=== PATIENT | male | born 1945 | race Caucasian/White ===

== ENCOUNTER 2020-11-14 18:32 | Inpatient (IN) ==
[2020-11-15] MEDS ORDERED: Dextrose Gel 15 GM/37.5 ML TUBE PO PRN ×2 (10:19)
[2020-11-15] MEDS ORDERED: D5% in Water 1,000 ML IVC PRN (10:19)
[2020-11-15] MEDS ORDERED: *HR* Dextrose 50 % in Water (Vial) 50 ML VIAL IVP PRN (10:19)
[2020-11-15] MEDS: Insulin LISPRO 300 UNITS/3 ML VIAL SUBQ SCH ×5 (12:19→20:41)
[2020-11-15] MEDS: *HR* HYDROcodone/Acet 5/325 mg TABLET PO PRN (16:58)
[2020-11-15] MEDS: QUEtiapine Fumarate 25 MG TABLET PO SCH (20:39)
[2020-11-15] MEDS: (Omega-3/Dha/Epa/Fish Oil [Fish Oil 1,000 Mg Softgel]) PO SCH (21:08)
[2020-11-16 07:26] LABS: Basophils # 0.1 K/mcL (0.0-0.2); Basophils % 0.9 %; Eosinophils # 0.4 K/mcL (0.0-0.6); Eosinophils % 4.4 %; Hematocrit 30.9 % (37.5-50.1); Hemoglobin 9.6 g/dL (12.9-16.9); Immature Granulocytes % 0.4 % (0-4); Lymphocytes # 2.8 K/mcL (0.6-4.6); Lymphocytes % 34.6 %; Mean Corpuscular HGB Conc 31.1 g/dL (31.6-35.5); Mean Corpuscular Hemoglobin 29.8 pg (28.0-33.3); Mean Platelet Volume 10.6 fL (9.4-12.4); Monocytes # 0.6 K/mcL (0.0-1.3); Monocytes % 7.5 %; Neutrophils # 4.2 K/mcL (1.6-8.9); Platelet Count 347 K/mcL (140-400); Red Blood Count 3.22 M/mcL (4.19-5.50); Red Cell Distribution Width 14.6 % (11.5-14.5); Segmented Neutrophils % 52.2 %
[2020-11-16 07:37] LABS: Calcium 8.7 mg/dL (8.6-10.3); Potassium 4.4 mEq/L (3.5-5.1)
[2020-11-16] MEDS: Multivit/Ca/Min/Fe/FA 1 TAB TABLET PO SCH (08:45)
[2020-11-16] MEDS: Finasteride 5 MG TABLET PO SCH (08:45)
[2020-11-16] MEDS: *HR* Rivaroxaban 10 MG TABLET PO SCH (08:45)
[2020-11-16] MEDS: Pyridoxine (B-6) 50 MG TABLET PO SCH (08:45)
[2020-11-16] MEDS: (Ezetimibe [Zetia] 10 MG Tablet) PO SCH (08:46)
[2020-11-16] MEDS: (Omega-3/Dha/Epa/Fish Oil [Fish Oil 1,000 Mg Softgel]) PO SCH ×2 (08:46→21:37)
[2020-11-16] MEDS: Insulin LISPRO 300 UNITS/3 ML VIAL SUBQ SCH ×4 (08:46→21:36)
[2020-11-16] MEDS: (Doxepin Hcl 10 MG Capsule) PO SCH (08:46)
[2020-11-16] MEDS: Ascorbic Acid 500 MG TABLET PO SCH (08:47)
[2020-11-16] MEDS: *HR* HYDROcodone/Acet 5/325 mg TABLET PO PRN ×3 (08:52→23:08)
[2020-11-16] MEDS: QUEtiapine Fumarate 25 MG TABLET PO SCH (21:39)
[2020-11-17] MEDS: Finasteride 5 MG TABLET PO SCH (08:50)
[2020-11-17] MEDS: *HR* Rivaroxaban 10 MG TABLET PO SCH (08:51)
[2020-11-17] MEDS: Multivit/Ca/Min/Fe/FA 1 TAB TABLET PO SCH (08:51)
[2020-11-17] MEDS: Pyridoxine (B-6) 50 MG TABLET PO SCH (08:51)
[2020-11-17] MEDS: Ascorbic Acid 500 MG TABLET PO SCH (08:51)
[2020-11-17] MEDS: Insulin LISPRO 300 UNITS/3 ML VIAL SUBQ SCH ×4 (08:52→20:45)
[2020-11-17] MEDS: (Ezetimibe [Zetia] 10 MG Tablet) PO SCH (08:57)
[2020-11-17] MEDS: (Doxepin Hcl 10 MG Capsule) PO SCH (08:57)
[2020-11-17] MEDS: (Omega-3/Dha/Epa/Fish Oil [Fish Oil 1,000 Mg Softgel]) PO SCH ×2 (08:57→21:33)
[2020-11-17] MEDS: *HR* HYDROcodone/Acet 5/325 mg TABLET PO PRN ×2 (08:58→18:20)
[2020-11-17] MEDS: QUEtiapine Fumarate 25 MG TABLET PO SCH (20:44)
[2020-11-18] MEDS: *HR* HYDROcodone/Acet 5/325 mg TABLET PO PRN ×3 (06:44→20:09)
[2020-11-18] MEDS: *HR* Rivaroxaban 10 MG TABLET PO SCH (08:21)
[2020-11-18] MEDS: Pyridoxine (B-6) 50 MG TABLET PO SCH (08:24)
[2020-11-18] MEDS: Ascorbic Acid 500 MG TABLET PO SCH (08:24)
[2020-11-18] MEDS: Multivit/Ca/Min/Fe/FA 1 TAB TABLET PO SCH (08:24)
[2020-11-18] MEDS: Finasteride 5 MG TABLET PO SCH (08:24)
[2020-11-18] MEDS: (Doxepin Hcl 10 MG Capsule) PO SCH (08:25)
[2020-11-18] MEDS: Insulin LISPRO 300 UNITS/3 ML VIAL SUBQ SCH ×4 (08:25→20:12)
[2020-11-18] MEDS: (Ezetimibe [Zetia] 10 MG Tablet) PO SCH (08:25)
[2020-11-18] MEDS: (Omega-3/Dha/Epa/Fish Oil [Fish Oil 1,000 Mg Softgel]) PO SCH ×2 (08:25→20:12)
[2020-11-18] MEDS: QUEtiapine Fumarate 25 MG TABLET PO SCH (20:09)
[2020-11-19] MEDS: *HR* HYDROcodone/Acet 5/325 mg TABLET PO PRN ×3 (06:38→20:03)
[2020-11-19] MEDS: Ascorbic Acid 500 MG TABLET PO SCH (09:07)
[2020-11-19] MEDS: *HR* Rivaroxaban 10 MG TABLET PO SCH (09:07)
[2020-11-19] MEDS: Multivit/Ca/Min/Fe/FA 1 TAB TABLET PO SCH (09:07)
[2020-11-19] MEDS: Finasteride 5 MG TABLET PO SCH (09:07)
[2020-11-19] MEDS: Pyridoxine (B-6) 50 MG TABLET PO SCH (09:08)
[2020-11-19] MEDS: Insulin LISPRO 300 UNITS/3 ML VIAL SUBQ SCH ×4 (09:09→21:35)
[2020-11-19] MEDS: tiZANidine 4 MG TABLET PO PRN ×2 (09:09→17:35)
[2020-11-19] MEDS: (Doxepin Hcl 10 MG Capsule) PO SCH (09:10)
[2020-11-19] MEDS: (Ezetimibe [Zetia] 10 MG Tablet) PO SCH (09:10)
[2020-11-19] MEDS: (Omega-3/Dha/Epa/Fish Oil [Fish Oil 1,000 Mg Softgel]) PO SCH ×2 (09:10→21:36)
[2020-11-19] MEDS: amLODIPine 5 MG TABLET PO SCH (12:07)
[2020-11-19] MEDS: QUEtiapine Fumarate 25 MG TABLET PO SCH (20:03)
[2020-11-20] MEDS: *HR* HYDROcodone/Acet 5/325 mg TABLET PO PRN ×4 (02:03→21:29)
[2020-11-20] MEDS: tiZANidine 4 MG TABLET PO PRN ×2 (04:32→18:09)
[2020-11-20] MEDS: Multivit/Ca/Min/Fe/FA 1 TAB TABLET PO SCH (08:01)
[2020-11-20] MEDS: *HR* Rivaroxaban 10 MG TABLET PO SCH (08:01)
[2020-11-20] MEDS: Finasteride 5 MG TABLET PO SCH (08:01)
[2020-11-20] MEDS: amLODIPine 5 MG TABLET PO SCH (08:01)
[2020-11-20] MEDS: Pyridoxine (B-6) 50 MG TABLET PO SCH (08:02)
[2020-11-20] MEDS: (Omega-3/Dha/Epa/Fish Oil [Fish Oil 1,000 Mg Softgel]) PO SCH ×2 (08:03→21:36)
[2020-11-20] MEDS: Ascorbic Acid 500 MG TABLET PO SCH (08:03)
[2020-11-20] MEDS: (Doxepin Hcl 10 MG Capsule) PO SCH (08:03)
[2020-11-20] MEDS: (Ezetimibe [Zetia] 10 MG Tablet) PO SCH (08:03)
[2020-11-20] MEDS: Insulin LISPRO 300 UNITS/3 ML VIAL SUBQ SCH ×4 (08:03→21:35)
[2020-11-20] MEDS: QUEtiapine Fumarate 25 MG TABLET PO SCH (21:30)
[2020-11-21] MEDS: tiZANidine 4 MG TABLET PO PRN ×2 (02:09→17:59)
[2020-11-21] MEDS: *HR* HYDROcodone/Acet 5/325 mg TABLET PO PRN ×2 (05:25→13:04)
[2020-11-21] MEDS: Insulin LISPRO 300 UNITS/3 ML VIAL SUBQ SCH ×4 (08:14→20:17)
[2020-11-21] MEDS: Multivit/Ca/Min/Fe/FA 1 TAB TABLET PO SCH (08:14)
[2020-11-21] MEDS: Finasteride 5 MG TABLET PO SCH (08:15)
[2020-11-21] MEDS: Ascorbic Acid 500 MG TABLET PO SCH (08:15)
[2020-11-21] MEDS: *HR* Rivaroxaban 10 MG TABLET PO SCH (08:15)
[2020-11-21] MEDS: (Omega-3/Dha/Epa/Fish Oil [Fish Oil 1,000 Mg Softgel]) PO SCH ×2 (08:16→20:20)
[2020-11-21] MEDS: (Ezetimibe [Zetia] 10 MG Tablet) PO SCH (08:16)
[2020-11-21] MEDS: (Doxepin Hcl 10 MG Capsule) PO SCH (08:16)
[2020-11-21] MEDS: Pyridoxine (B-6) 50 MG TABLET PO SCH (08:16)
[2020-11-21] MEDS: amLODIPine 5 MG TABLET PO SCH (08:16)
[2020-11-21] MEDS: *HR* HYDROcodone/Acet 7.5/325 mg TABLET PO PRN (20:16)
[2020-11-21] MEDS: QUEtiapine Fumarate 25 MG TABLET PO SCH (20:17)
[2020-11-21] MEDS: Insulin DETEMIR 100 UNIT/ML X5UNITS SUBQ SCH (20:18)
[2020-11-22] MEDS: *HR* HYDROcodone/Acet 7.5/325 mg TABLET PO PRN ×4 (02:48→21:02)
[2020-11-22] MEDS: tiZANidine 4 MG TABLET PO PRN ×2 (02:49→12:18)
[2020-11-22] MEDS: Ascorbic Acid 500 MG TABLET PO SCH (08:45)
[2020-11-22] MEDS: amLODIPine 5 MG TABLET PO SCH (08:45)
[2020-11-22] MEDS: *HR* Rivaroxaban 10 MG TABLET PO SCH (08:45)
[2020-11-22] MEDS: Finasteride 5 MG TABLET PO SCH (08:46)
[2020-11-22] MEDS: Multivit/Ca/Min/Fe/FA 1 TAB TABLET PO SCH (08:46)
[2020-11-22] MEDS: Pyridoxine (B-6) 50 MG TABLET PO SCH (08:46)
[2020-11-22] MEDS: Insulin LISPRO 300 UNITS/3 ML VIAL SUBQ SCH ×4 (08:47→21:03)
[2020-11-22] MEDS: (Omega-3/Dha/Epa/Fish Oil [Fish Oil 1,000 Mg Softgel]) PO SCH ×2 (09:08→21:04)
[2020-11-22] MEDS: (Doxepin Hcl 10 MG Capsule) PO SCH (09:08)
[2020-11-22] MEDS: (Ezetimibe [Zetia] 10 MG Tablet) PO SCH (09:08)
[2020-11-22] MEDS: QUEtiapine Fumarate 25 MG TABLET PO SCH (21:03)
[2020-11-22] MEDS: Insulin DETEMIR 100 UNIT/ML X5UNITS SUBQ SCH (21:19)
[2020-11-23] MEDS: tiZANidine 4 MG TABLET PO PRN (06:42)
[2020-11-23] MEDS: *HR* HYDROcodone/Acet 7.5/325 mg TABLET PO PRN (06:42)
[2020-11-23] MEDS: Insulin LISPRO 300 UNITS/3 ML VIAL SUBQ SCH ×2 (07:26→11:14)
[2020-11-23 07:57] VITALS: BP 98/62
[2020-11-23] MEDS: Ascorbic Acid 500 MG TABLET PO SCH (08:40)
[2020-11-23] MEDS: Pyridoxine (B-6) 50 MG TABLET PO SCH (08:40)
[2020-11-23] MEDS: *HR* Rivaroxaban 10 MG TABLET PO SCH (08:40)
[2020-11-23] MEDS: Finasteride 5 MG TABLET PO SCH (08:40)
[2020-11-23] MEDS: amLODIPine 5 MG TABLET PO SCH (08:41)
[2020-11-23] MEDS: Multivit/Ca/Min/Fe/FA 1 TAB TABLET PO SCH (08:41)
[2020-11-23] MEDS: (Omega-3/Dha/Epa/Fish Oil [Fish Oil 1,000 Mg Softgel]) PO SCH (08:42)
[2020-11-23] MEDS: (Doxepin Hcl 10 MG Capsule) PO SCH (08:42)
[2020-11-23] MEDS: (Ezetimibe [Zetia] 10 MG Tablet) PO SCH (08:42)
== END 2020-11-23 13:40 | disposition home health service (06) | DRG 946 ==
LOC: INPPIK 11-15 10:34
PROVIDERS: ADMIT Family Medicine; ATTEND Family Medicine

== ENCOUNTER 2021-01-11 06:48 | Inpatient (IN) ==
[2021-01-11] MEDS ORDERED: *HR* Dextrose 50 % in Water (Vial) 50 ML VIAL IVP PRN (08:20)
[2021-01-11] MEDS ORDERED: D5% in Water 1,000 ML IVC PRN (08:20)
[2021-01-11] MEDS ORDERED: Dextrose Gel 15 GM/37.5 ML TUBE PO PRN ×2 (08:20)
[2021-01-11 09:22] LABS: Basophils % 0.3 %; Eosinophils # 0.3 K/mcL (0.0-0.6); Eosinophils % 2.2 %; Hematocrit 27.3 % (37.5-50.1); Hemoglobin 8.6 g/dL (12.9-16.9); Immature Granulocytes % 1.2 % (0-4); Lymphocytes # 2.5 K/mcL (0.6-4.6); Lymphocytes % 19.6 %; Mean Corpuscular HGB Conc 31.5 g/dL (31.6-35.5); Mean Corpuscular Hemoglobin 29.3 pg (28.0-33.3); Mean Corpuscular Volume 92.9 fL (83.0-100.0); Mean Platelet Volume 10.2 fL (9.4-12.4); Monocytes # 0.8 K/mcL (0.0-1.3); Monocytes % 6.3 %; Platelet Count 343 K/mcL (140-400); Red Blood Count 2.94 M/mcL (4.19-5.50); Red Cell Distribution Width 16.1 % (11.5-14.5); Segmented Neutrophils % 70.4 %; White Blood Count 12.8 K/mcL (4.3-11.1)
[2021-01-11 09:56] LABS: Albumin 2.7 g/dL (3.5-5.7); Albumin/Globulin Ratio 0.9 (1.1-2.2); Bilirubin,Total 0.3 mg/dL (0.3-1.0); Calcium 7.8 mg/dL (8.6-10.3); Globulin 3.1 g/dL (2.4-3.5); Magnesium 1.3 mg/dL (1.6-2.6); Phosphorous 3.9 mg/dL (2.7-4.5); Potassium 4.6 mEq/L (3.5-5.1); Total Protein 5.8 g/dL (6.4-8.9)
[2021-01-11] MEDS: Insulin LISPRO 300 UNITS/3 ML VIAL SUBQ SCH ×4 (11:08→20:52)
[2021-01-11] MEDS: *HR* OxyCODONE Immed Rel 5 MG TABLET PO PRN ×2 (11:12→20:55)
[2021-01-11] MEDS: Pyridoxine (B-6) 50 MG TABLET PO SCH (11:12)
[2021-01-11] MEDS: (Ezetimibe [Zetia] 10 MG Tablet) PO SCH (11:13)
[2021-01-11] MEDS: Finasteride 5 MG TABLET PO SCH (11:13)
[2021-01-11] MEDS: (Omega-3/Dha/Epa/Fish Oil [Fish Oil 1,000 Mg Softgel]) PO SCH (11:13)
[2021-01-11] MEDS: Multivit/Ca/Min/Fe/FA 1 TAB TABLET PO SCH (11:13)
[2021-01-11] MEDS: Micafungin 100 MG in 0.9 % Sodium Chloride Mini Bag 100 ML IVPB SCH (12:45)
[2021-01-11] MEDS: *HR* Rivaroxaban 10 MG TABLET PO SCH (17:38)
[2021-01-11] MEDS: tiZANidine 4 MG TABLET PO PRN (17:48)
[2021-01-12 08:26] LABS: Basophils # 0.1 K/mcL (0.0-0.2); Basophils % 0.4 %; Eosinophils # 0.3 K/mcL (0.0-0.6); Eosinophils % 2.2 %; Hematocrit 25.5 % (37.5-50.1); Hemoglobin 8.2 g/dL (12.9-16.9); Immature Granulocytes % 1.1 % (0-4); Lymphocytes # 2.9 K/mcL (0.6-4.6); Lymphocytes % 24.1 %; Mean Corpuscular HGB Conc 32.2 g/dL (31.6-35.5); Mean Corpuscular Hemoglobin 29.4 pg (28.0-33.3); Mean Corpuscular Volume 91.4 fL (83.0-100.0); Mean Platelet Volume 10.6 fL (9.4-12.4); Monocytes # 0.9 K/mcL (0.0-1.3); Monocytes % 7.2 %; Platelet Count 393 K/mcL (140-400); Red Blood Count 2.79 M/mcL (4.19-5.50); Red Cell Distribution Width 16.3 % (11.5-14.5); White Blood Count 11.9 K/mcL (4.3-11.1)
[2021-01-12 08:27] LABS: Neutrophils # 7.7 K/mcL (1.6-8.9)
[2021-01-12] MEDS: (Omega-3/Dha/Epa/Fish Oil [Fish Oil 1,000 Mg Softgel]) PO SCH ×3 (08:30→21:17)
[2021-01-12] MEDS: Insulin LISPRO 300 UNITS/3 ML VIAL SUBQ SCH ×4 (08:32→21:15)
[2021-01-12] MEDS: Multivit/Ca/Min/Fe/FA 1 TAB TABLET PO SCH (08:35)
[2021-01-12] MEDS: Pyridoxine (B-6) 50 MG TABLET PO SCH (08:35)
[2021-01-12] MEDS: *HR* OxyCODONE Immed Rel 5 MG TABLET PO PRN ×2 (08:35→21:07)
[2021-01-12] MEDS: Micafungin 100 MG in 0.9 % Sodium Chloride Mini Bag 100 ML IVPB SCH (08:36)
[2021-01-12] MEDS: Ascorbic Acid 500 MG TABLET PO SCH (08:36)
[2021-01-12] MEDS: Finasteride 5 MG TABLET PO SCH (08:36)
[2021-01-12] MEDS: (Ezetimibe [Zetia] 10 MG Tablet) PO SCH (08:37)
[2021-01-12 09:03] LABS: Albumin 2.7 g/dL (3.5-5.7); Albumin/Globulin Ratio 0.9 (1.1-2.2); Bilirubin,Direct 0.1 mg/dL (0.0-0.2); Bilirubin,Indirect 0.3 mg/dL (0.0-1.0); Bilirubin,Total 0.4 mg/dL (0.3-1.0); Calcium 7.8 mg/dL (8.6-10.3); Globulin 2.9 g/dL (2.4-3.5); Potassium 5.2 mEq/L (3.5-5.1); Total Protein 5.6 g/dL (6.4-8.9)
[2021-01-12] MEDS: *HR* Rivaroxaban 10 MG TABLET PO SCH (18:13)
[2021-01-13] MEDS: tiZANidine 4 MG TABLET PO PRN ×2 (00:46→17:19)
[2021-01-13] MEDS: Micafungin 100 MG in 0.9 % Sodium Chloride Mini Bag 100 ML IVPB SCH (10:22)
[2021-01-13] MEDS: Multivit/Ca/Min/Fe/FA 1 TAB TABLET PO SCH (10:23)
[2021-01-13] MEDS: Pyridoxine (B-6) 50 MG TABLET PO SCH (10:23)
[2021-01-13] MEDS: Finasteride 5 MG TABLET PO SCH (10:23)
[2021-01-13] MEDS: Ascorbic Acid 500 MG TABLET PO SCH (10:24)
[2021-01-13] MEDS: (Omega-3/Dha/Epa/Fish Oil [Fish Oil 1,000 Mg Softgel]) PO SCH ×2 (10:26→21:28)
[2021-01-13] MEDS: (Ezetimibe [Zetia] 10 MG Tablet) PO SCH (10:26)
[2021-01-13] MEDS: Insulin LISPRO 300 UNITS/3 ML VIAL SUBQ SCH ×4 (10:26→21:16)
[2021-01-13] MEDS: *HR* OxyCODONE Immed Rel 5 MG TABLET PO PRN ×2 (11:34→21:13)
[2021-01-13] MEDS: *HR* Rivaroxaban 10 MG TABLET PO SCH (17:19)
[2021-01-14] MEDS: tiZANidine 4 MG TABLET PO PRN ×3 (03:44→20:38)
[2021-01-14 07:53] LABS: Albumin 2.5 g/dL (3.5-5.7); Albumin/Globulin Ratio 0.9 (1.1-2.2); Bilirubin,Total 0.3 mg/dL (0.3-1.0); Calcium 7.6 mg/dL (8.6-10.3); Globulin 2.7 g/dL (2.4-3.5); Potassium 5.3 mEq/L (3.5-5.1); Total Protein 5.2 g/dL (6.4-8.9)
[2021-01-14] MEDS: Micafungin 100 MG in 0.9 % Sodium Chloride Mini Bag 100 ML IVPB SCH (08:13)
[2021-01-14] MEDS: Multivit/Ca/Min/Fe/FA 1 TAB TABLET PO SCH (08:14)
[2021-01-14] MEDS: Finasteride 5 MG TABLET PO SCH (08:14)
[2021-01-14] MEDS: Pyridoxine (B-6) 50 MG TABLET PO SCH (08:14)
[2021-01-14] MEDS: Ascorbic Acid 500 MG TABLET PO SCH (08:14)
[2021-01-14] MEDS: *HR* OxyCODONE Immed Rel 5 MG TABLET PO PRN ×2 (08:15→20:39)
[2021-01-14] MEDS: Insulin LISPRO 300 UNITS/3 ML VIAL SUBQ SCH ×4 (08:15→20:41)
[2021-01-14] MEDS: (Ezetimibe [Zetia] 10 MG Tablet) PO SCH (08:16)
[2021-01-14] MEDS: (Omega-3/Dha/Epa/Fish Oil [Fish Oil 1,000 Mg Softgel]) PO SCH ×2 (08:16→20:41)
[2021-01-14] MEDS: *HR* Rivaroxaban 10 MG TABLET PO SCH (18:02)
[2021-01-15 08:29] LABS: Basophils # 0.1 K/mcL (0.0-0.2); Basophils % 0.7 %; Eosinophils # 0.2 K/mcL (0.0-0.6); Eosinophils % 1.9 %; Hematocrit 26.6 % (37.5-50.1); Hemoglobin 8.2 g/dL (12.9-16.9); Immature Granulocytes % 0.4 % (0-4); Lymphocytes # 2.4 K/mcL (0.6-4.6); Lymphocytes % 22.2 %; Mean Corpuscular HGB Conc 30.8 g/dL (31.6-35.5); Mean Corpuscular Hemoglobin 29.2 pg (28.0-33.3); Mean Corpuscular Volume 94.7 fL (83.0-100.0); Mean Platelet Volume 10.8 fL (9.4-12.4); Monocytes # 0.7 K/mcL (0.0-1.3); Monocytes % 6.6 %; Neutrophils # 7.5 K/mcL (1.6-8.9); Platelet Count 354 K/mcL (140-400); Red Blood Count 2.81 M/mcL (4.19-5.50); Red Cell Distribution Width 15.9 % (11.5-14.5); Segmented Neutrophils % 68.2 %
[2021-01-15 08:34] LABS: Albumin 2.7 g/dL (3.5-5.7); Albumin/Globulin Ratio 0.9 (1.1-2.2); Bilirubin,Total 0.4 mg/dL (0.3-1.0); Calcium 7.8 mg/dL (8.6-10.3); Potassium 5.4 mEq/L (3.5-5.1); Total Protein 5.7 g/dL (6.4-8.9)
[2021-01-15] MEDS: Finasteride 5 MG TABLET PO SCH (09:41)
[2021-01-15] MEDS: Micafungin 100 MG in 0.9 % Sodium Chloride Mini Bag 100 ML IVPB SCH (09:41)
[2021-01-15] MEDS: (Omega-3/Dha/Epa/Fish Oil [Fish Oil 1,000 Mg Softgel]) PO SCH ×2 (09:42→20:11)
[2021-01-15] MEDS: (Ezetimibe [Zetia] 10 MG Tablet) PO SCH (09:42)
[2021-01-15] MEDS: Multivit/Ca/Min/Fe/FA 1 TAB TABLET PO SCH (09:42)
[2021-01-15] MEDS: Pyridoxine (B-6) 50 MG TABLET PO SCH (09:42)
[2021-01-15] MEDS: Ascorbic Acid 500 MG TABLET PO SCH (09:42)
[2021-01-15] MEDS: Insulin LISPRO 300 UNITS/3 ML VIAL SUBQ SCH ×4 (09:52→23:30)
[2021-01-15] MEDS: *HR* Rivaroxaban 10 MG TABLET PO SCH (17:16)
[2021-01-15] MEDS: tiZANidine 4 MG TABLET PO PRN (20:09)
[2021-01-15] MEDS: *HR* OxyCODONE Immed Rel 5 MG TABLET PO PRN (20:10)
[2021-01-16 07:55] LABS: Calcium 7.8 mg/dL (8.6-10.3); Potassium 5.1 mEq/L (3.5-5.1)
[2021-01-16] MEDS: Pyridoxine (B-6) 50 MG TABLET PO SCH (08:26)
[2021-01-16] MEDS: Ascorbic Acid 500 MG TABLET PO SCH (08:26)
[2021-01-16] MEDS: Multivit/Ca/Min/Fe/FA 1 TAB TABLET PO SCH (08:27)
[2021-01-16] MEDS: Micafungin 100 MG in 0.9 % Sodium Chloride Mini Bag 100 ML IVPB SCH (08:28)
[2021-01-16] MEDS: Finasteride 5 MG TABLET PO SCH (08:28)
[2021-01-16] MEDS: Insulin LISPRO 300 UNITS/3 ML VIAL SUBQ SCH ×5 (08:30→21:29)
[2021-01-16] MEDS: (Omega-3/Dha/Epa/Fish Oil [Fish Oil 1,000 Mg Softgel]) PO SCH ×2 (08:52→20:27)
[2021-01-16] MEDS: (Ezetimibe [Zetia] 10 MG Tablet) PO SCH (08:52)
[2021-01-16] MEDS: *HR* Rivaroxaban 10 MG TABLET PO SCH (16:52)
[2021-01-16] MEDS: *HR* OxyCODONE Immed Rel 5 MG TABLET PO PRN (18:36)
[2021-01-16] MEDS: tiZANidine 4 MG TABLET PO PRN (20:25)
[2021-01-17 08:46] LABS: Basophils # 0.1 K/mcL (0.0-0.2); Basophils % 1.1 %; Eosinophils # 0.2 K/mcL (0.0-0.6); Eosinophils % 3.1 %; Hematocrit 23.6 % (37.5-50.1); Hemoglobin 7.3 g/dL (12.9-16.9); Immature Granulocytes % 0.2 % (0-4); Lymphocytes # 2.7 K/mcL (0.6-4.6); Lymphocytes % 42.2 %; Mean Corpuscular HGB Conc 30.9 g/dL (31.6-35.5); Mean Corpuscular Volume 93.7 fL (83.0-100.0); Mean Platelet Volume 10.7 fL (9.4-12.4); Monocytes # 0.5 K/mcL (0.0-1.3); Monocytes % 7.1 %; Platelet Count 312 K/mcL (140-400); Red Blood Count 2.52 M/mcL (4.19-5.50); Segmented Neutrophils % 46.3 %; White Blood Count 6.5 K/mcL (4.3-11.1)
[2021-01-17 09:07] LABS: Calcium 7.7 mg/dL (8.6-10.3); Potassium 5.1 mEq/L (3.5-5.1)
[2021-01-17] MEDS: *HR* OxyCODONE Immed Rel 5 MG TABLET PO PRN ×3 (10:02→21:44)
[2021-01-17] MEDS: Ascorbic Acid 500 MG TABLET PO SCH (10:03)
[2021-01-17] MEDS: Micafungin 100 MG in 0.9 % Sodium Chloride Mini Bag 100 ML IVPB SCH (10:03)
[2021-01-17] MEDS: Pyridoxine (B-6) 50 MG TABLET PO SCH (10:03)
[2021-01-17] MEDS: Insulin LISPRO 300 UNITS/3 ML VIAL SUBQ SCH ×4 (10:04→20:16)
[2021-01-17] MEDS: (Omega-3/Dha/Epa/Fish Oil [Fish Oil 1,000 Mg Softgel]) PO SCH ×2 (10:17→20:16)
[2021-01-17] MEDS: Finasteride 5 MG TABLET PO SCH (10:17)
[2021-01-17] MEDS: Multivit/Ca/Min/Fe/FA 1 TAB TABLET PO SCH (10:17)
[2021-01-17] MEDS: (Ezetimibe [Zetia] 10 MG Tablet) PO SCH (10:17)
[2021-01-17] MEDS: *HR* Rivaroxaban 10 MG TABLET PO SCH (17:06)
[2021-01-18] MEDS: tiZANidine 4 MG TABLET PO PRN ×3 (02:20→23:05)
[2021-01-18] MEDS: Micafungin 100 MG in 0.9 % Sodium Chloride Mini Bag 100 ML IVPB SCH (08:22)
[2021-01-18] MEDS: Finasteride 5 MG TABLET PO SCH (08:23)
[2021-01-18] MEDS: Ascorbic Acid 500 MG TABLET PO SCH (08:23)
[2021-01-18] MEDS: Multivit/Ca/Min/Fe/FA 1 TAB TABLET PO SCH (08:23)
[2021-01-18] MEDS: Pyridoxine (B-6) 50 MG TABLET PO SCH (08:24)
[2021-01-18] MEDS: *HR* OxyCODONE Immed Rel 5 MG TABLET PO PRN ×3 (08:27→17:04)
[2021-01-18] MEDS: Insulin LISPRO 300 UNITS/3 ML VIAL SUBQ SCH ×4 (08:38→20:26)
[2021-01-18] MEDS: (Ezetimibe [Zetia] 10 MG Tablet) PO SCH (09:25)
[2021-01-18] MEDS: (Omega-3/Dha/Epa/Fish Oil [Fish Oil 1,000 Mg Softgel]) PO SCH ×2 (09:27→20:24)
[2021-01-18] MEDS: *HR* Rivaroxaban 10 MG TABLET PO SCH (17:03)
[2021-01-19] MEDS: *HR* OxyCODONE Immed Rel 5 MG TABLET PO PRN ×2 (10:36→17:48)
[2021-01-19] MEDS: Ascorbic Acid 500 MG TABLET PO SCH (10:36)
[2021-01-19] MEDS: Multivit/Ca/Min/Fe/FA 1 TAB TABLET PO SCH (10:37)
[2021-01-19] MEDS: Pyridoxine (B-6) 50 MG TABLET PO SCH (10:37)
[2021-01-19] MEDS: Finasteride 5 MG TABLET PO SCH (10:38)
[2021-01-19] MEDS: Insulin LISPRO 300 UNITS/3 ML VIAL SUBQ SCH ×4 (10:40→20:49)
[2021-01-19] MEDS: Micafungin 100 MG in 0.9 % Sodium Chloride Mini Bag 100 ML IVPB SCH (10:41)
[2021-01-19] MEDS: (Omega-3/Dha/Epa/Fish Oil [Fish Oil 1,000 Mg Softgel]) PO SCH ×2 (10:42→20:55)
[2021-01-19] MEDS: (Ezetimibe [Zetia] 10 MG Tablet) PO SCH (10:42)
[2021-01-19 11:57] LABS: VBG Creatinine 2.82 mg/dL (0.72-1.25)
[2021-01-19 13:59] LABS: Calcium 8.6 mg/dL (8.6-10.3)
[2021-01-19] MEDS: *HR* Rivaroxaban 10 MG TABLET PO SCH (17:46)
[2021-01-20] MEDS: tiZANidine 4 MG TABLET PO PRN ×2 (02:53→21:10)
[2021-01-20] MEDS: Finasteride 5 MG TABLET PO SCH (08:48)
[2021-01-20] MEDS: Ascorbic Acid 500 MG TABLET PO SCH (08:48)
[2021-01-20] MEDS: Pyridoxine (B-6) 50 MG TABLET PO SCH (08:48)
[2021-01-20] MEDS: Multivit/Ca/Min/Fe/FA 1 TAB TABLET PO SCH (08:48)
[2021-01-20] MEDS: (Ezetimibe [Zetia] 10 MG Tablet) PO SCH (08:49)
[2021-01-20] MEDS: (Omega-3/Dha/Epa/Fish Oil [Fish Oil 1,000 Mg Softgel]) PO SCH ×2 (08:49→21:10)
[2021-01-20] MEDS: Micafungin 100 MG in 0.9 % Sodium Chloride Mini Bag 100 ML IVPB SCH (08:50)
[2021-01-20] MEDS: Insulin LISPRO 300 UNITS/3 ML VIAL SUBQ SCH ×4 (08:52→21:10)
[2021-01-20] MEDS: *HR* OxyCODONE Immed Rel 5 MG TABLET PO PRN ×2 (11:38→17:51)
[2021-01-20] MEDS: *HR* Rivaroxaban 10 MG TABLET PO SCH (16:39)
[2021-01-21] MEDS: Ascorbic Acid 500 MG TABLET PO SCH (08:15)
[2021-01-21] MEDS: *HR* OxyCODONE Immed Rel 5 MG TABLET PO PRN ×2 (08:15→16:27)
[2021-01-21] MEDS: Multivit/Ca/Min/Fe/FA 1 TAB TABLET PO SCH (08:16)
[2021-01-21] MEDS: Pyridoxine (B-6) 50 MG TABLET PO SCH (08:16)
[2021-01-21] MEDS: Finasteride 5 MG TABLET PO SCH (08:16)
[2021-01-21] MEDS: Insulin LISPRO 300 UNITS/3 ML VIAL SUBQ SCH ×4 (08:17→21:32)
[2021-01-21] MEDS: (Ezetimibe [Zetia] 10 MG Tablet) PO SCH (08:18)
[2021-01-21] MEDS: Micafungin 100 MG in 0.9 % Sodium Chloride Mini Bag 100 ML IVPB SCH (08:19)
[2021-01-21] MEDS: (Omega-3/Dha/Epa/Fish Oil [Fish Oil 1,000 Mg Softgel]) PO SCH ×2 (08:24→21:31)
[2021-01-21 10:17] LABS: Calcium 7.8 mg/dL (8.6-10.3); Potassium 4.8 mEq/L (3.5-5.1)
[2021-01-21] MEDS: *HR* Rivaroxaban 10 MG TABLET PO SCH (16:27)
[2021-01-21] MEDS: tiZANidine 4 MG TABLET PO PRN (21:31)
[2021-01-22] MEDS: tiZANidine 4 MG TABLET PO PRN ×2 (06:14→22:04)
[2021-01-22] MEDS: (Ezetimibe [Zetia] 10 MG Tablet) PO SCH (08:52)
[2021-01-22] MEDS: Ascorbic Acid 500 MG TABLET PO SCH (08:53)
[2021-01-22] MEDS: Pyridoxine (B-6) 50 MG TABLET PO SCH (08:53)
[2021-01-22] MEDS: Finasteride 5 MG TABLET PO SCH (08:53)
[2021-01-22] MEDS: Multivit/Ca/Min/Fe/FA 1 TAB TABLET PO SCH (08:53)
[2021-01-22] MEDS: Micafungin 100 MG in 0.9 % Sodium Chloride Mini Bag 100 ML IVPB SCH (08:54)
[2021-01-22] MEDS: (Omega-3/Dha/Epa/Fish Oil [Fish Oil 1,000 Mg Softgel]) PO SCH ×2 (08:54→22:10)
[2021-01-22] MEDS: Insulin LISPRO 300 UNITS/3 ML VIAL SUBQ SCH ×4 (09:04→22:09)
[2021-01-22] MEDS: *HR* OxyCODONE Immed Rel 5 MG TABLET PO PRN (12:39)
[2021-01-22] MEDS: *HR* Rivaroxaban 10 MG TABLET PO SCH (17:25)
[2021-01-23] MEDS: *HR* OxyCODONE Immed Rel 5 MG TABLET PO PRN ×2 (05:16→11:20)
[2021-01-23 07:39] VITALS: BP 179/81; PULSE 71; RESP 18; TEMP 98.1; O2SAT 96
[2021-01-23] MEDS: Pyridoxine (B-6) 50 MG TABLET PO SCH (08:17)
[2021-01-23] MEDS: Multivit/Ca/Min/Fe/FA 1 TAB TABLET PO SCH (08:17)
[2021-01-23] MEDS: Finasteride 5 MG TABLET PO SCH (08:18)
[2021-01-23] MEDS: Micafungin 100 MG in 0.9 % Sodium Chloride Mini Bag 100 ML IVPB SCH (08:19)
[2021-01-23] MEDS: Ascorbic Acid 500 MG TABLET PO SCH (08:19)
[2021-01-23] MEDS: (Omega-3/Dha/Epa/Fish Oil [Fish Oil 1,000 Mg Softgel]) PO SCH (08:21)
[2021-01-23] MEDS: (Ezetimibe [Zetia] 10 MG Tablet) PO SCH (08:21)
[2021-01-23] MEDS: Insulin LISPRO 300 UNITS/3 ML VIAL SUBQ SCH (08:22)
[2021-01-23 08:34] LABS: Basophils % 0.6 %; Eosinophils # 0.2 K/mcL (0.0-0.6); Eosinophils % 3.5 %; Hematocrit 25.5 % (37.5-50.1); Immature Granulocytes % 0.2 % (0-4); Lymphocytes # 2.7 K/mcL (0.6-4.6); Lymphocytes % 43.1 %; Mean Corpuscular HGB Conc 31.4 g/dL (31.6-35.5); Mean Corpuscular Hemoglobin 29.6 pg (28.0-33.3); Mean Corpuscular Volume 94.4 fL (83.0-100.0); Mean Platelet Volume 11.5 fL (9.4-12.4); Monocytes # 0.4 K/mcL (0.0-1.3); Monocytes % 6.8 %; Neutrophils # 2.9 K/mcL (1.6-8.9); Platelet Count 242 K/mcL (140-400); Red Cell Distribution Width 16.5 % (11.5-14.5); Segmented Neutrophils % 45.8 %; White Blood Count 6.2 K/mcL (4.3-11.1)
[2021-01-23 08:54] LABS: Albumin 2.9 g/dL (3.5-5.7); Bilirubin,Total 0.4 mg/dL (0.3-1.0); Globulin 2.8 g/dL (2.4-3.5); Potassium 4.9 mEq/L (3.5-5.1); Total Protein 5.7 g/dL (6.4-8.9)
== END 2021-01-23 11:40 | disposition home health service (06) | DRG 945 ==
LOC: INPPIK 06:50
PROVIDERS: ADMIT Family Medicine; ATTEND Family Medicine